=== PATIENT | male | born 1975 | race Asian ===

== ENCOUNTER 2023-11-20 05:23 | Emergency (ER) | payer OTHER ==
[~2023-11-20] VITALS: Ht 182.9 cm; Wt 83.5 kg
[2023-11-20] MEDS: KETOROLAC 60MG 2ML VIAL IM ONE (07:51)
[2023-11-20] MEDS ORDERED: NAPR-837 PO (08:18)
[2023-11-20 08:55] VITALS: BP 116/64; TEMP 97.8; O2SAT 99
== END 2023-11-20 08:52 | disposition home or self-care (01) ==
LOC: M ED 05:23
DX: M71.452 Calcium deposit in bursa, left hip (principal); Z79.1 Long term (current) use of non-steroidal anti-inflammatories (NSAID)
CPT/HCPCS: 73502; 96372; 99283; J1885